=== PATIENT | male | born 1965 | race Hispanic/Latino ===

== ENCOUNTER 2020-06-16 13:58 | Emergency (ER) | payer BC ==
[2020-06-16] MEDS ORDERED: Morphine 2 MG/ML SYRINGE ONE (15:21)
== END 2020-06-16 15:40 | disposition short-term general hospital (02) ==
LOC: BURERS 13:58
DX: N36.8 Other specified disorders of urethra (principal); R33.9 Retention of urine, unspecified; E11.9 Type 2 diabetes mellitus without complications; E78.00 Pure hypercholesterolemia, unspecified; E78.5 Hyperlipidemia, unspecified; I10 Essential (primary) hypertension
CPT/HCPCS: 96372; 99284; J2270